=== PATIENT | female | born 1960 | race Caucasian/White ===

== ENCOUNTER 2016-07-31 10:55 | Outpatient (CLI) | payer OTHER ==
[2016-07-31 17:34] LABS: ALT (SGPT) 11 U/L (0-55); AST (SGOT) 16 U/L (5-34); Albumin 4.2 g/dL (3.5-5.0); Alkaline Phosphatase 71 U/L (40-150); Anion Gap 15 mmol/L (10-20); BUN (Urea Nitrogen) 14 mg/dL (9.8-20.1); Bilirubin, Total 0.6 mg/dL (0.2-1.2); Calc. Creatinine Clearance 0 mL/min (70-130); Calcium 9.2 mg/dL (7.8-10.44); Carbon Dioxide 24 mmol/L (22-29); Cardiac Risk 2.8 (Less than 4.5); Chloride 108 mmol/L (98-107); Cholesterol 180 mg/dL (< 200 Desired); Estimated GFR-MDRD 61; Glucose 95 mg/dL (70-105); HDL Cholesterol 64 mg/dL (>60 Neg Risk); LDL Cholesterol, Calculated 101 mg/dL; Potassium 5.9 mmol/L (3.5-5.1); Protein, Total 7.2 g/dL (6.0-8.3); Sodium 141 mmol/L (136-145); Triglycerides 74 mg/dL (Less than 150)
== END 2016-07-31 10:56 | disposition home or self-care (01) ==
LOC: LABLEX 10:55
PROVIDERS: ATTEND Family Medicine
DX: E78.5 Hyperlipidemia, unspecified (principal)
CPT/HCPCS: 80053; 80061

== ENCOUNTER 2016-08-07 08:38 | Outpatient (CLI) | payer OTHER ==
[2016-08-07 16:22] LABS: Potassium 6.1 mmol/L (3.5-5.1)
== END 2016-08-07 08:39 | disposition home or self-care (01) ==
LOC: LABLEX 08:38
PROVIDERS: ATTEND Family Medicine
DX: E87.5 Hyperkalemia (principal)
CPT/HCPCS: 84132

== ENCOUNTER 2016-11-06 10:26 | Outpatient (CLI) | payer OTHER ==
[2016-11-06 16:43] LABS: Potassium 6.3 mmol/L (3.5-5.1)
== END 2016-11-06 10:27 ==
LOC: LABLEX 10:26
PROVIDERS: ATTEND Family Medicine
DX: E87.5 Hyperkalemia (principal)
CPT/HCPCS: 84132

== ENCOUNTER 2016-11-07 10:31 | Outpatient (CLI) | payer OTHER ==
[2016-11-07 12:05] LABS: Potassium 5.1 mmol/L (3.5-5.1)
== END 2016-11-07 10:32 | disposition home or self-care (01) ==
LOC: BURLAB 10:31
PROVIDERS: ATTEND Family Medicine
DX: E87.5 Hyperkalemia (principal)
CPT/HCPCS: 36415; 84132